=== PATIENT | male | born 1995 | race Caucasian/White ===

== ENCOUNTER 2017-09-04 02:13 | Emergency (ER) | payer OTHER ==
[~2017-09-04] VITALS: Ht 172.7 cm; Wt 74.0 kg
[2017-09-04 02:22] VITALS: TEMP 36.5; Ht 172.7 cm; Wt 74.0 kg
[2017-09-04 02:51] LABS: CALCIUM 8.6 mg/dl (8.5-10.1); POTASSIUM 3.2 mmol/L (3.5-5.1)
--- NOTE | 2017-09-04 05:14 | EMERGENCY ROOM VISIT NOTE ---
History Report prepared by Carlinibemmie: Alvin Navarro Under the Supervision of: Dr. Dilcia Maxwell D.O. First contact with patient: 02:17 Chief Complaint: ALCOHOL OVERDOSE Stated Complaint: ALCOHOL Nursing Triage Summary: PT was found outside in apt parking lot by police. PT was confused as to date and time, noted to be intoxicated. PT brought in by EMS for evaluation. upon arrival PT oriented to person and place, cooperative and calm at this time. History of Present Illness The patient is a 21 year old male who presents to the Emergency Room brought in by EMS with complaints of persistent general alcohol intoxication CURRICULUM AND ASSESSMENT COORDINATOR. Per EMS, the patient was found wandering around in a parking lot of a [facility]. They note the patient was disoriented to time of day and place. The patient denies any underlying medical problems. He denies taking any regular medications. Per EMS, the patient has been drinking since 0700 yesterday. He states that he went out drinking with friends. He is unsure of how he ended up in an ambulance. He denies any drug use. He denies any falls or head injuries. Source of History: patient, EMS Onset: CURRICULUM AND ASSESSMENT COORDINATOR Position: other (general) Quality: other (alcohol intoxication) Timing: other (persistent) Note: He denies any head injuries or falls. Review of Systems See HPI for pertinent positives & negatives. A total of 10 systems reviewed and were otherwise negative. Past Medical & Surgical Medical Problems: (1) No Known Active Medical Problems No other pertinent personal past medical history obtained. Family History No pertinent family history Social History Smoking Status: Never Smoker Alcohol Use: heavy Marital Status: single Housing Status: lives with roommate Occupation Status: [employer] student Current/Historical Medications No Active Prescriptions or Reported Meds Allergies Coded Allergies: No Known Allergies (Unverified , 09/04/17) Physical Exam Vital Signs Date Time Temp Pulse Resp B/P (MAP) Pulse Ox O2 Delivery O2 Flow Rate FiO2 09/04/17 06:57 78 18 110/70 98 09/04/17 06:26 121 09/04/17 06:00 90 12 102/82 97 Nasal Cannula 2.0 09/04/17 05:00 114 12 90/44 95 Nasal Cannula 2.0 09/04/17 04:00 100 18 81/50 98 Nasal Cannula 2.0 09/04/17 02:45 99 09/04/17 02:22 36.5 114 18 136/91 98 Room Air Physical Exam General: Smells of ETOH. Cooperative. HEENT: Head - normocephalic and atraumatic Pupils are 8mm, round, and sluggishly reactive to light. Extraocular eye muscles are intact, and sclera are anicteric. Nose - moist nasal mucosa without discharge. Mouth - moist buccal mucosa. Oropharynx is nonerythematous and there is no tonsillar exudate or edema noted. Neck: Supple; no JVD, nuchal rigidity, cervical lymphadenopathy Heart: Tachycardic rate and regular rhythm. There is a normal S1 and S2 with no murmurs, clicks, or gallops appreciated. Lungs: Clear to auscultation bilaterally with no wheezes, rales, or rhonchi. Abdomen: Soft, completely nontender, nondistended, with good bowel sounds. There are no palpable pulsatile masses or hepatosplenomegaly. There is no guarding, rigidity, or rebound noted. Extremities: No evidence of cyanosis, clubbing, or edema. There are easily palpable peripheral pulses. Skin: warm and dry with good turgor and no rashes. Medical Decision & Procedures Laboratory Results 09/04/17 02:21 Test 09/04/17 02:21 Anion Gap 6.0 mmol/L (3-11) Est Creatinine Clear Calc Drug Dose 114.9 ml/min Estimated GFR () 125.9 Estimated GFR (Non- 108.6 BUN/Creatinine Ratio 12.1 (10-20) Calcium Level 8.6 mg/dl (8.5-10.1) Ethyl Alcohol mg/dL 240.0 mg/dl (0-3) Laboratory results per my review. ED Course 0212: Past medical records reviewed. The patient was evaluated in room B12B. A complete history and physical exam was performed. The patient was placed in the prone position to avoid aspiration. They were observed on the cardiac cath lab radiology technologist and pulse oximeter. Labs were drawn as above 0400: I reassessed the patient at this time. The patient is sleeping. His vital signs are stable. 0552: I reassessed the patient at this time. The patient is sleeping. His vital signs are stable. 0645: I reassessed the patient at this time. The patient was vomiting. He states that he feels better and would like to go home. I discussed the results and treatment plan with the patient. I answered all pertaining questions that he had. He expressed understanding and verbalized agreement. The patient will be discharged home. Medical Decision The patient is a 21 year old male who presents to the ED with alcohol intoxication. Differential diagnosis includes alcohol overdose, drug intoxication, hypoglycemia, and head injury. Lab results showed. Alcohol 240. Glucose 124. Normal renal function. Potassium slightly low at 3.2. The patient was brought to the emergency department after consuming too much alcohol. There were no obvious signs of trauma or complaints of pain. They were observed closely throughout the night and remained stable while here in the ER. The patient was allowed time to sober up prior to discharge. I had a conversation with the patient about the hazards of such excessive alcohol use. I encouraged him to take foods high in potassium. Medication Reconcilliation Current Medication List: was personally reviewed by me Blood Pressure Screening Patient's blood pressure: Normal blood pressure Impression Primary Impression: Alcohol overdose Additional Impression: Hypokalemia Scribe Attestation The scribe's documentation has been prepared under my direction and personally reviewed by me in its entirety. I confirm that the note above accurately reflects all work, treatment, procedures, and medical decision making performed by me. Departure Information Dispostion Home / Self-Care Prescriptions No Active Prescriptions or Reported Meds Forms HOME CARE DOCUMENTATION FORM, IMPORTANT VISIT INFORMATION Patient Instructions ED Overdose Alcohol, Hypokalemia [facility] [employer] [facility] and Alcohol Related Visits, My [facility] Additional Instructions Avoid such excessive alcohol use in the future. Tylenol 650 mg every 6 hours for headache. Drink plenty of fluids and take a bland diet today. Return to the emergency department for worsening symptoms or any medical concerns. take foods high in potassium Problem Qualifiers Primary Impression: Alcohol overdose Encounter type: initial encounter Injury intent: accidental or unintentional Qualified Codes: T51.91XA - Toxic effect of unspecified alcohol , accidental (unintentional), initial encounter
[2017-09-04 06:57] VITALS: BP 110/70; PULSE 78; O2SAT 98
== END 2017-09-04 06:59 | disposition home or self-care (01) ==
LOC: EDBD 02:13 → C.EDB 02:15
DX: F10.929 Alcohol use, unspecified with intoxication, unspecified (principal); Y90.8 Blood alcohol level of 240 mg/100 ml or more; R00.0 Tachycardia, unspecified; E87.6 Hypokalemia